=== PATIENT | female | born 1985 | race Two or more races ===

== ENCOUNTER 2021-05-09 03:20 | Emergency (ER) | payer OTHER ==
[~2021-05-09] VITALS: Ht 152.4 cm; Wt 47.6 kg
== END 2021-05-09 12:50 | disposition home or self-care (01) ==
LOC: ER 03:20
DX: J06.9 Acute upper respiratory infection, unspecified (principal); B34.9 Viral infection, unspecified; Z20.822 Contact with and (suspected) exposure to COVID-19

== ENCOUNTER 2021-05-25 03:23 | Emergency (ER) | payer OTHER ==
[~2021-05-25] VITALS: Ht 152.4 cm; Wt 49.0 kg
== END 2021-05-25 04:14 | disposition home or self-care (01) ==
LOC: ER 03:23
DX: F06.4 Anxiety disorder due to known physiological condition (principal)

== ENCOUNTER → 2021-05-30 | Emergency (ER) | payer OTHER ==
[~2021-05-30] VITALS: Ht 152.4 cm; Wt 49.0 kg
== END | disposition left against medical advice (07) ==
LOC: ER 12:53
DX: Z53.21 Procedure and treatment not carried out due to patient leaving prior to being seen by health care provider (principal)